=== PATIENT | female | born 1975 | race Caucasian/White ===

== ENCOUNTER 2022-08-09 14:29 | Emergency (ER) | payer OTHER, SELFPAY ==
[2022-08-09 14:48] VITALS: BP 162/103; PULSE 76; RESP 14; TEMP 36.9; O2SAT 98
--- NOTE | 2022-08-09 15:52 | CTR_ITS ---
PROCEDURE INFORMATION: Exam: CT Abdomen And Pelvis Without Contrast Exam date and time: 08/09/2022 4:45 PM Age: 47 years old Clinical indication: Pain; Other: Left flank; Prior surgery; Surgery date: 6+ months; Surgery type: C section, ventura; Additional info: Left flank pain TECHNIQUE: Imaging protocol: Computed tomography of the abdomen and pelvis without contrast. Axial, coronal and sagittal reformatted images were created and reviewed. Radiation optimization: All CT scans at this facility use at least one of these dose optimization techniques: automated exposure control; mA and/or kV adjustment per patient size (includes targeted exams where dose is matched to clinical indication); or iterative reconstruction. COMPARISON: CR XR KUB [id number] 04/05/2020 4:21 PM RADIATION DOSE METRICS: Total DLP (mGy-cm): 992.92 FINDINGS: Lungs: Linear stranding and groundglass at the lung bases, likely due to atelectasis and/or scarring. Liver: Mild hepatomegaly. Diffuse hepatic steatosis. Gallbladder and bile ducts: Status post cholecystectomy. No biliary ductal dilatation. Pancreas: Unremarkable. Spleen: Unremarkable. Adrenal glands: Normal. No mass. Kidneys and ureters: Mild left-sided hydroureteronephrosis and perinephric/periureteral stranding, secondary to a 3 mm distal left ureteral calculus (axial image 210 and coronal image 82). Stomach and bowel: No bowel wall thickening. No obstruction. No pneumatosis. Appendix: Normal. Intraperitoneal space: Trace nonspecific free pelvic fluid, likely physiologic. No organized fluid collection. No free air. Vasculature: Unremarkable. No aneurysm. Lymph nodes: No pathologically enlarged lymph nodes. Urinary bladder: Unremarkable as visualized. Reproductive: 5 x 2.7 cm left adnexal cystic lesion. Bones/joints: No acute osseous abnormality. Mild degenerative changes. Soft tissues: Small, fat containing umbilical hernia. CT/CT kidney stone [id number] IMPRESSION: 1. Mild left-sided hydroureteronephrosis and perinephric/periureteral stranding, secondary to a 3 mm distal left ureteral calculus. 2. 5 x 2.7 cm left adnexal cystic lesion. If clinically indicated, pelvic ultrasound may be obtained for further evaluation. 3. Additional findings, as above.
--- NOTE | 2022-08-09 15:52 | W.ED.ABDPA2 ---
HPI - Abdominal Pain General: Chief Complaint: Abdominal Pain Stated Complaint: urinary pain Time Seen by Provider: 08/09/22 15:50 History of Present Illness: 47-year-old female comes in today for complaints of left flank tenderness radiating to the groin. Patient now has nausea and vomiting. Patient was given some Toradol at noon today. Patient does have a history of renal calculi. Patient appears nontoxic. Patient appears in moderate pain. Associated Symptoms: Denies fever(s) Review of Systems Const: Denies: fever(s) : Reports: flank pain PFSH ED PFSH: Medical History (Updated 08/09/22 @ 17:38 by BENNY Brown) History of kidney stones Social History Smoking and tobacco status: former smoker Physical Exam Const: COMMON NORMALS: alert HENMT: COMMON NORMALS: normocephalic HEAD & SCALP: normocephalic Neck/C-Spine: COMMON NORMALS: full ROM Resp: COMMON NORMALS: normal respiratory effort and clear to auscultation bilaterally AUSCULTATION: clear to auscultation bilaterally Cardio: COMMON NORMALS: regular rate RATE: regular rate GI: COMMON NORMALS: Soft to palpation PALPATION: Yes Soft to palpation : BLADDER/KIDNEY EXAM: Yes CVA tenderness on the left Back/Pelvis: GENERAL BACK: Yes CVA tenderness Extremity: COMMON NORMALS: no pedal edema Neuro: SENSORIUM/ORIENTATION: Yes alert Skin: COMMON NORMALS: turgor normal GENERAL SKIN EXAM: turgor normal Course Vital Signs: Vital signs: Vital Signs Temperature 98.5 F 08/09/22 14:48 Pulse Rate 76 08/09/22 14:48 Respiratory Rate 16 08/09/22 16:39 Blood Pressure 162/103 08/09/22 14:48 Pulse Oximetry 98 08/09/22 14:48 Oxygen Delivery Me thod 08/09/22 14:48 MDM - Abdominal Pain Medical Decision Making 47-year-old female comes in today with left abdominal and flank pain. Pain started this morning. Patient was given some Toradol around 1230. Patient comes in now for worsening pain and nausea and vomiting. Patient appears nontoxic. Patient appears in moderate pain. Vital signs are normal except for some elevated blood pressure. Differential diagnosis includes but not limited to diverticulitis, pyelonephritis, renal calculi. CBC noted some mild elevation white blood cell count 11.3, CMP was unremarkable, urinalysis had a large amount of blood. CT of the abdomen pelvis noted a 3 mm distal left ureteral stone. Reviewed exam with patient with recommendations for treatment and follow-up. Patient reported understanding agreed to plan. Lab Data 08/09/22 16:27 08/09/22 16:27 Labs/Radiology: Radiology Impressions Abdomen/Pelvis CT 08/09/22 15:52 IMPRESSION: 1. Mild left-sided hydroureteronephrosis and perinephric/periureteral stranding, secondary to a 3 mm distal left ureteral calculus. 2. 5 x 2.7 cm left adnexal cystic lesion. If clinically indicated, pelvic ultrasound may be obtained for further evaluation. 3. Additional findings, as above. Laboratory Results WBC 11.3 10^3/uL (4.0-10.0) H 08/09/22 16:27 RBC 5.40 10^6/uL (4.1-5.3) H 08/09/22 16:27 Hgb 16.3 g/dL (11.5-15.3) H 08/09/22 16:27 Hct 49.9 % (37.0-47.0) H 08/09/22 16:27 MCV 92.4 fl (81-99) 08/09/22 16:27 MCH 30.2 pg (28.0-34.0) 08/09/22 16:27 MCHC 32.7 g/dL (30.0-36.0) 08/09/22 16: RDW 12.6 % (12.1-15.1) 08/09/22 16:27 Plt Count 264 10^3/cmm (130-400) 08/09/22 16: MPV 9.9 fL (7.4-10.4) 08/09/22 16: Neut % (Auto) 71.9 % 08/09/22 16: Lymph % (Auto) 21.0 % 08/09/22 16:27 Nance % (Auto) 4.8 % 08/09/22 16: Eos % (Auto) 1.5 % 08/09/22 16: Baso % (Auto) 0.4 % 08/09/22 16:27 Neut # (Auto) 8.14 10^3/uL (1.8-7.7) H 08/09/22 16:27 Lymph # (Auto) 2.4 10^3/uL (0.8-4.8) 08/09/22 16:27 Nance # (Auto) 0.5 10^3/uL (0.2-0.9) 08/09/22 16:27 Eos # (Auto) 0.2 10^3/uL (0.0-0.8) 08/09/22 16:27 Baso # (Auto) 0.0 10^3/uL (0.0-0.1) 08/09/22 16: Nucleated RBC % (auto) 0 % 08/09/22 16: Nucleated RBCs # 0.0 /100WBC 08/09/22 16:27 Sodium 139 mmol/L (136-145) 08/09/22 16:27 Potassium 4.3 mmol/L (3.5-5.1) 08/09/22 16: Chloride 102 mmol/L (98-107) 08/09/22 16:27 Carbon Dioxide 26 mmol/L (22-29) 08/09/22 16:27 Anion Gap 15.3 (5-19) 08/09/22 16:27 BUN 12 mg/dL (6-20) 08/09/22 16:27 Creatinine 0.9 mg/dL (0.5-0.9) 08/09/22 16:27 GFR Calculation 67.1 mL/min (90-130) L 08/09/22 16:27 Glucose 95 mg/dL (65-115) 08/09/22 16:27 Calculated Osmolality 288 mOsm/kg (285-295) 08/09/22 16:27 Calcium 10.2 mg/dL (8.5-10.5) 08/09/22 16:27 Total Bilirubin 0.3 mg/dL (0.15-1.2) 08/09/22 16:27 AST 25 U/L (0-32) 08/09/22 16:27 ALT 46 U/L (0-33) H 08/09/22 16:27 Alkaline Phosphatase 90 U/L (35-105) 08/09/22 16:27 Total Protein 7.8 g/dL (6.6-8.7) 08/09/22 16:27 Albumin 4.5 g/dL (3.5-5.2) 08/09/22 16:27 Globulin 3.3 g/dL (1.3-4.6) 08/09/22 16:27 Lipase 41 U/L (13-60) 08/09/22 16:27 HCG, Qual Negative (Negative) 08/09/22 17:26 Urine Color Yellow (Yellow) 08/09/22 17:26 Urine Appearance Clear (CLEAR) 08/09/22 17:26 Urine pH 5 (5-7) 08/09/22 17:26 Ur Specific [place] 1.025 (1.005-1.030) 08/09/22 17:26 Urine Protein Neg (Negative) 08/09/22 17:26 Urine Glucose (UA) Norm (Normal) 08/09/22 17:26 Urine Ketones Negative (Negative) 08/09/22 17:26 Urine Blood 3+ (Negative) H 08/09/22 17:26 Urine Nitrate Negative (Negative) 08/09/22 17:26 Urine Bilirubin Neg (Negative) 08/09/22 17:26 Urine Urobilinogen Norm mg/dL (Negative) 08/09/22 17:26 Ur Leukocyte Esterase Negative (Negative) 08/09/22 17:26 Urine RBC 40-50 /hpf (0-2) H 08/09/22 17:26 Urine WBC 0-4 /hpf (0-5) H 08/09/22 17:26 Ur Squamous Epith Cells 0-4 /hpf (0-5) H 08/09/22 17:26 Amorphous Sediment Not Reportable 08/09/22 17:26 Urine Bacteria Trace /hpf (NONE) 08/09/22 17:26 Discharge Plan Discharge Patient Disposition: Home Clinical Impression: Left ureteral calculus Condition: Stable Prescriptions: New hydrocodone-acetaminophen 5-325 mg tablet 1 tab PO Q4H PRN (Reason: pain (scale score 7-10)) Qty: 20 0RF ondansetron 4 mg tablet,disintegrating 4 mg PO Q8H 5 Days Qty: 15 0RF Discharge Orders: Discharge ED (Routine); Ordered 08/09/22 Ordered By: Brad Norris Discharge Diet: Usual diet Discharge Activity: Increase activity as tolerated Patient Instructions: Renal Colic (ED), Opioid Safety Activity Restrictions/Additional Instructions: Activity as tolerated. Follow-up with your urologist for further treatment. Use medications as directed. Return to ER for worsening symptoms such as fever greater than 100.4, inability to hold fluids down, uncontrolled pain, or new concerns. Coding Level of Care Code ED Clinical Research Associate for Daniel Fwd Exam Comprehensive
[2022-08-09 16:39] VITALS: RESP 16
[2022-08-09] MEDS: morphine 4 mg/mL SDV 1 mL IVP (16:39)
[2022-08-09] MEDS: metoclopramide 5 mg/mL SDV 2 mL 10 MG IVP (16:40)
[2022-08-09 16:50] LABS: Basophils % 0.4 %; Eosinophils # 0.2 10^3/uL (0.0-0.8); Eosinophils % 1.5 %; Hematocrit 49.9 % (37.0-47.0); Hemoglobin 16.3 g/dL (11.5-15.3); Lymphocytes # 2.4 10^3/uL (0.8-4.8); Mean Corpuscular HGB Conc 32.7 g/dL (30.0-36.0); Mean Corpuscular Hemoglobin 30.2 pg (28.0-34.0); Mean Corpuscular Volume 92.4 fl (81-99); Mean Platelet Volume 9.9 fL (7.4-10.4); Monocytes # 0.5 10^3/uL (0.2-0.9); Monocytes % 4.8 %; Neutrophils # 8.14 10^3/uL (1.8-7.7); Neutrophils % 71.9 %; Nucleated Red Blood Cells % 0 %; Platelet Count 264 10^3/cmm (130-400); Red Cell Distribution Width 12.6 % (12.1-15.1); White Blood Count 11.3 10^3/uL (4.0-10.0)
[2022-08-09 17:18] LABS: Alanine Aminotransferase 46 U/L (0-33); Albumin Level 4.5 g/dL (3.5-5.2); Alkaline Phosphatase 90 U/L (35-105); Anion Gap 15.3 (5-19); Aspartate Amino Transferase 25 U/L (0-32); Blood Urea Nitrogen 12 mg/dL (6-20); Calcium 10.2 mg/dL (8.5-10.5); Carbon Dioxide 26 mmol/L (22-29); Chloride 102 mmol/L (98-107); Globulin 3.3 g/dL (1.3-4.6); Glomerular Filtration Rate 67.1 mL/min (90-130); Glucose 95 mg/dL (65-115); Lipase 41 U/L (13-60); Osmolality Calculated 288 mOsm/kg (285-295); Potassium 4.3 mmol/L (3.5-5.1); Sodium 139 mmol/L (136-145); Total Bilirubin 0.3 mg/dL (0.15-1.2); Total Protein 7.8 g/dL (6.6-8.7)
[2022-08-09] MEDS: ondansetron 2 mg/ML SDV 2 mL 4 MG IVP (17:21)
[2022-08-09] MEDS: sodium chloride 0.9% 500 ML 999 ML IV (17:25)
[2022-08-09 17:37] LABS: HCG Qualitative Urine. Negative (Negative)
[2022-08-09 17:38] LABS: Add Urine Microscopic? YES; Bilirubin Urine Neg (Negative); Blood Urine 3+ (Negative); Glucose Urine UA Norm (Normal); Ketones Urine Negative (Negative); Leukocyte Esterase Urine Negative (Negative); Nitrate Urine Negative (Negative); Protein Urine Neg (Negative); Specific Gravity, Urine 1.025 (1.005-1.030); Urine Appearance Clear (CLEAR); Urine Color Yellow (Yellow); Urobilinogen Urine Norm (Negative); pH Urine 5 (5-7)
[2022-08-09 17:39] LABS: Add Urine Culture? No; Bacteria Urine TRACE /hpf; RBC Urine 40-50 /hpf (0-2); Squamous Epithelial Cell Urine 0-4 /hpf (0-5); WBC Urine 0-4 /hpf (0-5)
== END 2022-08-09 17:51 | disposition home or self-care (01) ==
PROVIDERS: Emergency Medicine; Emergency Provider Nurse Practitioner Family
DX: N13.2 Hydronephrosis with renal and ureteral calculous obstruction (principal); Z87.891 Personal history of nicotine dependence; Z87.442 Personal history of urinary calculi
CPT/HCPCS: 74176; 80053; 81000; 81001; 81025; 83690; 85025; 96360; 96374; 96375; 99285; J2270; J2405; J2765; J7040

== ENCOUNTER → 2023-10-03 09:07 | Outpatient (BNVA) | payer OTHER, SELFPAY | PROVIDERS: PCP Family Medicine; Visit Provider Family Medicine | DX: Z00.00 Encounter for general adult medical examination without abnormal findings (principal) | CPT/HCPCS: 80053; 80061; 83036; 85025; 86803 ==

== ENCOUNTER 2023-10-10 06:04 | Outpatient (CLI) | payer OTHER, SELFPAY ==
--- NOTE | 2023-10-10 06:15 | US_ITS ---
WS: [id number] US pelv w/transvag [id number] HISTORY: l adnexal cyst rlq pain COMPARISON: None available. Uterus: 11.0 cm x 5.0 cm x 5.8 cm. Slightly enlarged uterus. No fibroid or mass. Endometrium: 1.1 cm. Normal. No mass or increased vascularity. Right ovary: Not visualized. Left ovary: 7.0 cm x 5.8 cm x 3.0 cm. The LEFT adnexa is abnormal due to several cysts closely associ ated with the ovary. There are a few thin septations and a few nodules along the nolan of this cystic structures. Due to the appearance I suspect this could be a dilated fallopian tube. The cystic struc ture in its entirety measures 6.8 x 5.1 x 2.4 cm. No free fluid in the cul-de-sac. IMPRESSION: 1. Normal endometrium. 2. Cystic structure with thin septations in tubular configuration in the LEFT adnexa. Minimally comp cassandra ovarian cyst versus hydrosalpinx. This corresponds to the abnormality seen on the CT from 022.
== END 2023-10-10 06:05 | disposition home or self-care (01) ==
LOC: RAD 06:05
PROVIDERS: Visit Provider Family Medicine
DX: R10.31 Right lower quadrant pain (principal); N83.8 Other noninflammatory disorders of ovary, fallopian tube and broad ligament
CPT/HCPCS: 76830; 76856

== ENCOUNTER → 2023-12-12 10:59 | Outpatient (BNVA) | payer OTHER, SELFPAY | PROVIDERS: PCP Family Medicine; Visit Provider Nurse Practitioner Women's Health | DX: N83.202 Unspecified ovarian cyst, left side (principal) | CPT/HCPCS: 76830 ==

== ENCOUNTER → 2024-01-15 11:06 | Outpatient (BNVA) | payer OTHER, SELFPAY | PROVIDERS: PCP Family Medicine; Visit Provider Nurse Practitioner Women's Health | DX: Z12.4 Encounter for screening for malignant neoplasm of cervix (principal); N72 Inflammatory disease of cervix uteri | CPT/HCPCS: 87491; 87591; 87624 ==

== ENCOUNTER → 2024-03-06 14:49 | Outpatient (BNVA) | payer OTHER, SELFPAY | PROVIDERS: PCP Family Medicine; Visit Provider Nurse Practitioner Women's Health | DX: Z12.4 Encounter for screening for malignant neoplasm of cervix (principal); R87.89 Other abnormal findings in specimens from female genital organs | CPT/HCPCS: 88175 ==

== ENCOUNTER 2025-06-29 07:49 | Outpatient (CLI) | payer OTHER, SELFPAY ==
--- NOTE | 2025-06-29 08:20 | MM_ITS ---
WS: [id number] BILATERAL SCREENING DIGITAL TOMOSYNTHESIS MAMMOGRAM WITH CAD HISTORY: breast cancer screening COMPARISON: 06/12/2018, ultrasound 06/12/2018 Bilateral CC and MLO views with tomosynthesis and synthetic mammography submitted. Computer aided detection analyzed. Breast composition: There are scattered areas of fibroglandular density. No suspicious masses, microcalcifications or architectural distortion. Focal area of increased density and asymmetry upper outer quadrant RIGHT breast. This is at the area of the previously described cystic mass. LEFT breast is negative. MM/MM scr BI tomosynthesis [id number] IMPRESSION: BI-RADS: 0 - Incomplete: Need additional imaging evaluation. FOLLOW UP: Need Additional Imaging Recommendation: RIGHT breast ultrasound upper outer quadrant. Focused attention to 9-10 o'clock.
== END 2025-06-29 07:50 | disposition home or self-care (01) ==
LOC: RAD 07:50
PROVIDERS: PCP Family Medicine; Visit Provider Family Medicine
DX: Z12.31 Encounter for screening mammogram for malignant neoplasm of breast (principal); R92.323 Mammographic fibroglandular density, bilateral breasts; N64.89 Other specified disorders of breast
CPT/HCPCS: 77063; 77067

== ENCOUNTER 2025-07-06 08:14 | Outpatient (CLI) | payer OTHER, SELFPAY ==
--- NOTE | 2025-07-06 08:45 | US_ITS ---
WS: [id number] ULTRASOUND RIGHT BREAST HISTORY: increased density and asymmetry upper outer quadrant RIGHT COMPARISON: Mammogram 06/29/2025. Prior breast ultrasound 06/12/2018. TECHNIQUE: 2-D and Doppler. Ultrasound directed to the upper outer quadrant of the RIGHT breast. There are a few small cysts with through transmission. The largest at 9:00 measures 0.8 x 0.7 x 0.6 cm. There is no solid mass or area of shadowing. The asymmetry noted on recent mammogram is dense fibroglandular tissue. US/US breast RT limited* [id number] IMPRESSION: BI-RADS: 2- Benign FOLLOW-UP: 1 Year Follow-up Recommend return to annual screening mammography. The asymmetry in the upper ou ter quadrant of the RIGHT breast is dense fibroglandular tissue and a few small cysts.
== END 2025-07-06 08:15 | disposition home or self-care (01) ==
LOC: RAD 08:15
PROVIDERS: PCP Family Medicine; Visit Provider Family Medicine
DX: R92.8 Other abnormal and inconclusive findings on diagnostic imaging of breast (principal); N64.89 Other specified disorders of breast; R92.321 Mammographic fibroglandular density, right breast
CPT/HCPCS: 76642

== ENCOUNTER → 2025-07-27 15:27 | Outpatient (BNVA) | payer OTHER, SELFPAY | PROVIDERS: PCP Family Medicine; Visit Provider Family Medicine | DX: Z00.00 Encounter for general adult medical examination without abnormal findings (principal) | CPT/HCPCS: 80053; 80061; 84443; 85025 ==

== ENCOUNTER 2025-08-10 12:05 | Outpatient (CLI) | payer OTHER, SELFPAY ==
--- NOTE | 2025-08-10 13:00 | CT_ITS ---
WS: [id number] LDCT LUNG CANCER SCREENING HISTORY: lung cancer screening TECHNIQUE: Axial imaging performed from the apices to 1 cm below the costophrenic angles. Coronal and sagittal reformats are submitted with axial MIP series. All CT scans at [facility] use at least one of these dose optimization techniques: automated exposure control; mA and/or kV adjustment per patient size (includes targeted exams where dose is matched to clinical indication); or iterative reconstruction. DLP: 79.50 mGy.cm DIvol: Mean CTDIvol: 1.80 (mGy) COMPARISON: None available. Diagnostic quality: Satisfactory Lungs: There are a few scattered micronodules in the periphery of the upper lung lainez. These are less than 3 mm. No mass or nodule. No pneumonia. No endobronchial lesions. Heart: Normal size heart with no pericardial effusion.. Other findings: Hepatic steatosis. Incompletely visualized adrenal glands. Small incompletely visualized LEFT adrenal adenoma versus hyperplasia. Prior cholecystectomy. Deformity of the sternum. May be due to prior trauma. CT/CT lung screening [id number] IMPRESSION: LUNG-RADS: 2-Benign Appearance or Behavior FOLLOW UP: 12 Month: Continue annual screening with LDCT OTHER FINDINGS (S MODIFIER): None.
== END 2025-08-10 12:06 | disposition home or self-care (01) ==
LOC: RAD 12:08
PROVIDERS: PCP Family Medicine; Visit Provider Family Medicine
DX: Z12.2 Encounter for screening for malignant neoplasm of respiratory organs (principal); Z87.891 Personal history of nicotine dependence; K76.0 Fatty (change of) liver, not elsewhere classified; Z90.49 Acquired absence of other specified parts of digestive tract; E27.9 Disorder of adrenal gland, unspecified
CPT/HCPCS: 71271